=== PATIENT | male | born 1965 | race Two or more races ===

== ENCOUNTER 2024-08-17 10:43 | Outpatient (OUT) | payer OTHER, SELFPAY ==
--- NOTE | 2024-08-17 10:56 | ECG_ITS ---
[facility] Date: 2024-08-17 Pat Name: KERRY SUMMERS Department: Room: - Gender: Male Community Development Manager: : 1965 Requested By: RAMO SANCHEZ Order Number: [id number] Reading MD: BENNETT SMITH M.D. Measurements Intervals [place] Rate: 73 P: 36 UT: 172 QRS: 41 QRSD: 85 T: 41 QT: 375 QTc: 413 Interpretive Statements SINUS RHYTHM Normal ECG No previous ECG available for comparison Electronically Signed On 08-18-2024 19:17:09 EDT by BENNETT SMITH M.D.
[2024-08-17 12:04] LABS: Basophils Percent Auto 0.5 % (0.2-2.0); Eosinophils Absolute Auto 0.1 10^3/uL (0.0-0.7); Eosinophils Percent Auto 1.7 % (0.9-7.0); Hematocrit 44.2 % (42.0-54.0); Hemoglobin 15.1 g/dL (14.0-18.0); Immature Granulocytes Abs Auto 0.01 10^3/uL (0.00-0.03); Immature Granulocytes Pct Auto 0.2 % (0.0-0.5); Lymphocytes Absolute Auto 1.9 10^3/uL (1.2-3.8); Lymphocytes Percent Auto 32.5 % (20.5-60.0); Mean Corpuscular HGB Conc 34.2 g/dL (29.9-35.2); Mean Corpuscular Hemoglobin 32.5 pg (25.9-34.0); Mean Corpuscular Volume 95.1 fL (80.0-94.0); Mean Platelet Volume 9.8 fL (9.5-13.5); Monocytes Absolute Auto 0.5 10^3/uL (0.3-0.8); Monocytes Percent Auto 7.7 % (1.7-12.0); Neutrophils Absolute Auto 3.4 10^3/uL (1.4-6.5); Neutrophils Percent Auto 57.4 % (43.0-75.0); Platelet Count 268 10^3/uL (150-450); Red Blood Count 4.65 10^6/uL (4.70-6.10); Red Cell Distribution Width 12.7 % (11.0-15.0); White Blood Count 5.9 10^3/uL (4.0-11.0)
[2024-08-17 12:28] LABS: INR 1.03; Partial Thromboplastin Time 27.9 sec (22.3-36.2); Prothrombin Time 10.9 sec (9.0-11.6)
[2024-08-17 12:49] LABS: Anion Gap 10.8; BUN Creatinine Ratio 12.6; Calcium 8.8 mg/dL (8.5-10.1); Carbon Dioxide 30.7 mmol/L (21.0-32.0); Chloride 102 mmol/L (98-107); Estimated GFR (African America >60 (>=60 mL/min/1.73m^2); Estimated GFR (Non-African Ame >60 (>=60 mL/min/1.73m^2); Glucose 133 mg/dL (74-106); Potassium 4.5 mmol/L (3.5-5.1); Sodium 139 mmol/L (136-145)
== END 2024-08-17 10:44 | disposition home or self-care (01) ==
LOC: PST 10:47
PROVIDERS: PCP Family Medicine; Visit Provider Otolaryngology
DX: Z01.810 Encounter for preprocedural cardiovascular examination (principal); Z01.812 Encounter for preprocedural laboratory examination; H69.92 Unspecified Eustachian tube disorder, left ear
CPT/HCPCS: 36415; 80048; 85025; 85610; 85730; 93005

== ENCOUNTER 2024-08-31 08:57 | Day surgery (SDC) | payer OTHER, SELFPAY ==
[2024-08-17 11:45] VITALS: BP 126/79; PULSE 71; TEMP 36.2; O2SAT 94; BMI 56.7
[2024-08-31] VITALS (13 sets, daily range): BP systolic 125–155; BP diastolic 63–81; PULSE 64–89; TEMP 35.9–36.2; O2SAT 92–98; BMI 56.4
[2024-08-31 09:38] LABS: Glucometer 165 mg/dL (74-106)
[2024-08-31] MEDS: LACTATED RINGER'S SOLUTION 1,000 ML 50 ML IV (09:39)
[2024-08-31] MEDS: OXYMETAZOLINE HCL 0.05% NASAL SPRAY 30 SPRAY NS (10:30)
--- NOTE | 2024-08-31 10:30 | OP_ITS ---
OP Note ? OPERATION DATE: ??08/31/2024 ? PRIMARY CARE PHYSICIAN:? Jessica Garcia M.D. ? SURGEON:? Alexandria Pina M.D. ? PREOPERATIVE DIAGNOSIS:? Left eustachian tube dysfunction. ? POSTOPERATIVE DIAGNOSIS:? Left eustachian tube dysfunction. ? PROCEDURE:? Left myringotomy and tube and nasal endoscopy. ? ANESTHESIA:? General endotracheal. ? COMPLICATIONS:? None. ? FINDINGS:? No nasopharyngeal pad evident.? Left middle ear dry. ? INDICATIONS: This 59-year-old man presented with chronic eustachian tube dysfunction, unresponsive to aggressive medical management.? ?PROCEDURE:? Patient identified in the holding area and taken back to the OR where he was placed in the supine position.? After induction of general anesthesia, an Afrin soaked pledget was placed in the left nose.? Then, the left ear was approached with the otomicroscope.? Cerumen was cleaned from the canal using a cerumen curette and an anterior radial myringotomy was performed.? A modified Rommel?s T-tube was folded, inserted through the myringotomy and opened in the middle ear using microdissection.? Attention was then returned to the nose.? The Afrin was removed, and then a 30 degree nasal endoscope was used to visualize the nasopharynx, and there was no pathology evident to have caused the patient?s eustachian tube dysfunction.? Patient was then awakened and taken to the recovery room in good condition. DAVID
== END 2024-08-31 12:05 | disposition home or self-care (01) ==
PROVIDERS: PCP Family Medicine; Visit Provider Otolaryngology
PROC: (CPT 126; principal; 2024-08-31 10:00)
PROC: (CPT 126; 2024-08-31 10:00)
DX: H69.92 Unspecified Eustachian tube disorder, left ear (principal); H65.92 Unspecified nonsuppurative otitis media, left ear; E11.9 Type 2 diabetes mellitus without complications; Z79.01 Long term (current) use of anticoagulants; E66.01 Morbid (severe) obesity due to excess calories; Z68.43 Body mass index [BMI] 50.0-59.9, adult; Z79.85 Long-term (current) use of injectable non-insulin antidiabetic drugs; I10 Essential (primary) hypertension; G47.33 Obstructive sleep apnea (adult) (pediatric); Z87.442 Personal history of urinary calculi
CPT/HCPCS: 31231; 69436; 36415; 82948; J0330; J2250; J2405; J2704; J3010

== ENCOUNTER 2024-12-27 13:29 | Outpatient (OUT) | payer OTHER, SELFPAY ==
--- NOTE | 2024-12-27 13:38 | MR_ITS ---
[address] [address] Patient Name: KERRY SUMMERS MRN: [id number] date: 1965 Sex: M Assigned Patient Location: MRI Current Patient Location: MRI Accession/Order Number: [id number] Exam Date: 12/27/2024 21:12 Report Date: 12/27/2024 21:16 At the request of: NELIDA LOOMIS Procedure: MR cervical spine wo con EXAMINATION: MRI OF THE CERVICAL SPINE WITHOUT CONTRAST CLINICAL DATA: Cervical Radiculopathy COMPARISON: None TECHNIQUE: Multiecho imaging was performed in the sagittal and axial plane without contrast FINDINGS: Craniocervical junction is maintained. Cervical cord demonstrates normal signal and morphology. Cervical vertebral heights, alignment and bone marrow signal is unremarkable. Mild intervertebral space narrowing C4-C7. Prevertebral and paraspinal soft tissues unremarkable. C2-C3: Mild to moderate right facet arthropathy and mild left facet arthropathy. Minimal bilateral neural from narrowing. Canal is patent. C3-C4: Broad-based disc bulge with minimal uncovertebral spurring and mild right greater than left facet arthropathy. This results in mild bilateral neural foraminal narrowing. Canal is patent. C4-C5: Minimal broad-based bulge. Bilateral uncovertebral spurring. Mild facet arthropathy. Mild bilateral neural foraminal narrowing. Canal is patent. C5-C6: Broad-based disc bulge with bilateral uncovertebral spurring. Moderate bilateral neural foraminal narrowing. Mild central canal stenosis. C7: Broad-based disc osteophyte complex with moderate bilateral uncovertebral spurring. This results in moderate right moderate to severe left neural foraminal narrowing. Mild central canal stenosis. C7-T1: Mild facet arthropathy. No significant disease, central canal or neural from narrowing identified. MR/MR cervical spine wo con IMPRESSION: [id number] DEGENERATIVE CHANGES. DEGENERATIVE CHANGES ARE MOST PRONOUNCED C5 THROUGH C7, GREATEST AT C6-C7 ON THE LEFT. Impression dictated by: Pieter Lou M.D. 12/27/2024 9:16 PM Dictation Location: [place] [address] Electronically authenticated by: [id number] Y Date: 12/27/2024 21:16
== END 2024-12-27 13:30 | disposition home or self-care (01) ==
PROVIDERS: PCP Family Medicine; Visit Provider Personal Emergency Response Attendant
DX: M54.12 Radiculopathy, cervical region (principal); M50.30 Other cervical disc degeneration, unspecified cervical region
CPT/HCPCS: 72141